=== PATIENT | female | born 1985 | race African-American/Black ===

== ENCOUNTER 2019-02-07 13:37 | Emergency (ER) | payer MEDICAID, SELFPAY ==
[2019-02-07] MEDS ORDERED: Lorazepam 1 MG TAB ONE (14:14)
== END 2019-02-07 14:58 | disposition home or self-care (01) ==
LOC: ERS 13:37
DX: F41.9 Anxiety disorder, unspecified (principal); I10 Essential (primary) hypertension
CPT/HCPCS: 93005; 94760

== ENCOUNTER 2019-02-24 00:52 | Emergency (ER) | payer BC, SELFPAY ==
[2019-02-24 01:39] LABS: Bacteria/HPF None Seen HPF (None Seen); Bilirubin Negative (Negative); Blood, Urine Negative (Negative); Clarity Clear (Clear); Glucose, Urine (Dipstick) Normal (Negative); Leukocyte Negative Leu/uL (Negative); Nitrite Negative (Negative); Protein, Urine (Dipstick) 70 mg/dL (Neg-Trace); Squamous Epithelial 0-3 HPF (0-3); Urobilinogen Normal mg/dL (Less than 2); WBC/HPF 0-3 HPF (0-3)
== END 2019-02-24 02:05 | disposition home or self-care (01) ==
LOC: ERS 00:52
DX: I10 Essential (primary) hypertension (principal); F41.9 Anxiety disorder, unspecified; Z79.899 Other long term (current) drug therapy
CPT/HCPCS: 81003; 81015; 93005

== ENCOUNTER 2019-03-04 12:23 | Emergency (ER) | payer BC ==
[2019-03-04 13:55] LABS: Bacteria/HPF None Seen HPF (None Seen); Bilirubin Negative (Negative); Blood, Urine 3+ (Negative); Clarity Clear (Clear); Glucose, Urine (Dipstick) Normal (Negative); Leukocyte 25 Leu/uL (Negative); Nitrite Negative (Negative); Pregnancy Test - Urine (BHCG) Negative (Negative); Protein, Urine (Dipstick) 70 mg/dL (Neg-Trace); RBC/HPF 21-50 HPF (0-3); Urobilinogen Normal mg/dL (Less than 2)
[2019-03-04 13:56] LABS: Pregu Control Background? CLEAR/WHITE (CLR/WHITE); Pregu Control Bar Appear? YES (CONTROL BAR); Specific Gravity 1.014 (1.002-1.036)
[2019-03-04] MEDS ORDERED: Ondansetron ODT 4 MG TAB ONE (14:19)
== END 2019-03-04 14:39 | disposition home or self-care (01) ==
LOC: ERS 12:23
DX: R11.2 Nausea with vomiting, unspecified (principal); I10 Essential (primary) hypertension; F41.9 Anxiety disorder, unspecified
CPT/HCPCS: 36416; 81003; 81015; 81025; 99284; Q0162